=== PATIENT | female | born 1940 | race Caucasian/White ===

== ENCOUNTER → 2017-08-02 | Outpatient (CLI) | payer MEDICARE ==
[~2017-08-02] MED LIST: AMLO2.5T PO; APAP/BUTALBITAL1 TA1 PO; CYMBALTA30 MG PO; DIAZEPAM5 MG PO; FLONASE 50 MCG16 GM; GABAPENTIN300 MG PO; HYDROCHLOROTH12.5 M1 PO; LEVOTHYROXINE0.05 MG PO; MELOXICAM15 MG PO; MIRAPEX 0.120.125 MG PO; PERCOCET 5/3251 EACH PO; PREDNISONE 10MG10 MG PO; PRILOSEC20 M1 PO; PROAIR HFA0.09 MG/AC IH; PROLIA60 MG/ML SC; RESTORIL30 MG PO; SPIRIVA18 MCG IH; SYMBICORT1 AER IH; SYNTHROID 0.00.05 MG PO; VIMOVO 20 MG-501 TCP PO; VITAMIN B121000 MC2 PO; VITAMIN D1000 IU PO; XOPENEX0.63 MG/3 INH; ZYRTEC 10MG TAB10 MG PO
== END ==
LOC: LAB 11:57
DX: J40 Bronchitis, not specified as acute or chronic (principal)

== ENCOUNTER → 2017-08-07 | Outpatient (CLI) | payer MEDICARE, MEDICAID ==
--- NOTE | 2017-08-07 21:10 | RADIOLOGY REPORT PS360 ---
PROCEDURE: 2-D M-mode and color Doppler study INDICATIONS FOR THE TEST: Chest pain COPD Heart Murmur Tobacco Smoking Palpitations Fatigue Syncope Edema HypertensionXDiabetes Mellitus Rheumatic Fever SOBXDOEXObesityXHyperlipidemia Family History HD Additional History PATIENT INFORMATION HEIGHT: 62 WEIGHT:200 GENDER: Female B/P:140/80 2-D/M-MODE INTERPRETATION: 2-D MEASUREMENTS OBSERVED VALUES IN CMS Right Ventricular Dimension (RVDd) 2.3 Interventricular Septum (Thickness)(IVsd) 1.0 Left Ventricular Internal Dimensions(LVIDd) 6.0 Left Ventricular Posterior Wall (Thickness)(LVPWd) 1.0 Aortic Root 3.3 Aortic Cusp Separation 1.9 Left Atrial Dimensions (LAD) 2.8 2D 1. Left atrium is mildly enlarged, left ventricle is normal size, there is mild inferior wall hypokinesis, visually estimated ejection fraction 50%. 2. The right atrium and right ventricle are relatively normal size and function. 3. The aortic valve is minimally thickened and fibrosed. 4. The mitral and tricuspid valve leaflets are minimally thickened. 5. The pulmonic valve is poorly visualized. 6. No significant pericardial effusion noted. DOPPLER INTERROGATION: Doppler interrogation of the aortic, mitral and tricuspid valvular presence of mild mitral and tricuspid regurgitation, tricuspid and jet velocity is insufficient for calculation of the right ventricular systolic pressure, grade 1 diastolic dysfunction seen without tissue Doppler evidence of raised left atrial pressure, agitated saline contrast study identifies right to left shunt likely secondary to patent foramen ovale. CONCLUSION: 1. Mildly enlarged left atrium, normal left ventricular size, preserved left ventricular systolic function, visually estimated ejection fraction of 55% with no obvious regional wall motion abnormality, grade 1 diastolic dysfunction seen without tissue Doppler evidence of raised left atrial pressure. 2. Mild mitral and tricuspid regurgitation, tricuspid regurgitant jet velocity insufficient for calculation of the right ventricular systolic pressure. 3. Agitated saline contrast study identifies right to left shunt through patent foramen ovale.
== END ==
LOC: RT 08:50
DX: R06.02 Shortness of breath (principal)

== ENCOUNTER 2017-10-08 07:59 | Day surgery (SDC) | payer MEDICARE ==
[~2017-10-08] VITALS: Ht 157.5 cm; Wt 90.7 kg
--- NOTE | 2017-10-08 08:59 | Operative Note ---
Upper GI Endoscopy Procedure date: 10/08/17 Date of : 42 Procedure:Upper GI Endoscopy Esophagogastroduodenoscopy with cold biopsies and TTS balloon dilation Indications: Mrs. Devi is a 76-year-old female who is here for diagnostic upper endoscopy. She does have dyspepsia with epigastric abdominal soreness and pain. She has some bloating. She also reports some heartburn and reflux. She is on omeprazole 20 mg by mouth twice a day. She did have an upper endoscopy in [address] Derian Crane and did have some esophagitis at that time. The patient does report some occasional but rare dysphagia. She reports no nausea, belching or early satiety. She reports no melena, hematochezia or weight loss. Performing Provider: Felice Card MD Referring Provider: Kendall Taylor M.D. Sedation: MAC sedation Procedure: Prior to the procedure, a history and physical exam was performed, and patients medications and allergies were reviewed. The risks and benefits of the procedure and the sedation options and risks were discussed with the patient. All questions were answered and informed consent was obtained. The patient was brought to the procedure room. Patient identification and proposed procedure were verified by the physician and the nurse. The patient was placed in a left lateral decubitus position and the scope was passed under direct vision. Throughout the procedure, the patient's blood pressure, pulse, and oxygen saturations were monitored continuously. The endoscope was introduced through the mouth, and advanced to the second part of duodenum. The upper GI endoscopy was accomplished without difficulty. The patient tolerated the procedure well. Findings: The scope was passed directly into the upper esophagus and advanced to the third portion of the duodenum. Within the third portion of the duodenum was a 18-20 mm lesion that appeared to be submucosal in nature. This appeared to be slightly pedunculated. Cold biopsies were obtained. It was difficult to get well biopsies. The scope was withdrawn through a normal duodenal bulb and pylorus into the stomach. There was linear erythema of the antrum and body of the stomach with some bile reflux. The remainder of the antrum, body and fundus of the stomach were grossly normal. Upon retroflexion there was a very small 1-2 cm hiatal hernia. 2 biopsies were taken in the antrum and along the lesser curvature for histology. The scope was then withdrawn into the esophagus. There was a distal Schatzki's ring which was dilated to 60 Y[place]/20 mm with a TTS hydrostatic balloon. There was no evidence of reflux esophagitis or Dong's. The remainder of the esophageal mucosa was normal. Immediate complications: None EBL (ml): 0 Impression: 1. Schatzki's ring dilated to 20 mm 2. Nonerosive gastroesophageal reflux disease with very small sliding hiatal hernia and mild dysmotility 3. Linear reactive gastritis with bile reflux 4. 18-20 mm pedunculated duodenal lesionrule out submucosal lesion Recommendations: I will follow-up the biopsies. Will discuss additional treatment options for her functional dyspepsia. I will proceed with screening colonoscopy. I will follow up the biopsies of the duodenal pedunculated polypoid lesion. If the biopsies showed normal mucosa, I would consider endoscopic ultrasound of this lesion. at 0885
--- NOTE | 2017-10-08 09:31 | Operative Note ---
Colonoscopy ([place]) Procedure date: 10/08/17 Date of : 42 Procedure:Colonoscopy Colonoscopy with cold biopsies and cold snare polypectomy Indications: Mrs. Devi is a 76-year-old female who is here for follow-up screening colonoscopy. She does have dyspepsia. She also has a very strong family history of colon cancer. Her brother had colon cancer at the age of 58. Her father had colon cancer at the age of 80. She also thinks that her sister may have had colon cancer. The patient did have a colonoscopy in [address] Markie Aguero and had 2 polyps removed at that time that were diminutive. The patient does have normal bowel movements. She reports no rectal bleeding or weight loss. She does have upper abdominal discomfort. Performing Provider: Felice Card MD Referrring Provider: Kendall Taylor M.D. Sedation: MAC sedation Procedure: Prior to the procedure, a history and physical exam was performed, and patient medications and allergies were reviewed. The risks and benefits of the procedure and the sedation options and risks were discussed with the patient. All questions were answered and informed consent was obtained. Patient identification and proposed procedure were verified by the physician and the nurse. The patient was placed in a left lateral decubitus position. Throughout the procedure, the patient's blood pressure, pulse, and oxygen saturations were monitored continuously. Findings: On digital rectal examination there was normal rectal tone. There were no external hemorrhoids. The colonoscope was introduced through the anal canal to the rectum and advanced to the cecum. The ileocecal valve and appendiceal orifice were identified. The scope was advanced a short distance into the ileum which appeared grossly normal. The scope was then withdrawn into the colon. Cold biopsies were taken from the RIGHT colon to rule out microscopic colitis. There were 8 colon polyps identified in the cecum 2, ascending 3, transverse 1 and descending 2. These ranged in size from 4-8 mm and were all removed via cold snare polypectomy and cold biopsies. There were scattered diverticuli throughout the descending and sigmoid colon (LEFT colon). The rectum itself was normal. Upon retroflexion within the rectum there were grade 1 internal hemorrhoids. Impressions: 1. Colonic polyps 8 2. Left-sided diverticulosis 3. Grade 1 internal hemorrhoids Recommendations: I will follow up the polyp pathology and recommend repeat colonoscopy again in 3 years based upon the patient's family history and the present polyp number and histology. I would encourage fiber supplementation on a long-term daily maintenance basis. Complications: None EBL (ml): 0 at 0931
[2017-10-08 10:49] VITALS: BP 133/80
== END 2017-10-08 10:31 | disposition home or self-care (01) ==
LOC: SDC 07:59
PROVIDERS: Internal Medicine Gastroenterology
PROC: 0DBL8ZX Excision of Transverse Colon, Via Natural or Artificial Opening Endoscopic, Diagnostic (ICD-10-PCS; 2017-10-08)
PROC: 0DBM8ZX Excision of Descending Colon, Via Natural or Artificial Opening Endoscopic, Diagnostic (ICD-10-PCS; 2017-10-08)
PROC: 0DBH8ZX Excision of Cecum, Via Natural or Artificial Opening Endoscopic, Diagnostic (ICD-10-PCS; 2017-10-08)
PROC: 0D758ZZ Dilation of Esophagus, Via Natural or Artificial Opening Endoscopic (ICD-10-PCS; 2017-10-08)
PROC: 0DB98ZX Excision of Duodenum, Via Natural or Artificial Opening Endoscopic, Diagnostic (ICD-10-PCS; 2017-10-08)
PROC: 0DB68ZX Excision of Stomach, Via Natural or Artificial Opening Endoscopic, Diagnostic (ICD-10-PCS; 2017-10-08)
PROC: 0DBK8ZX Excision of Ascending Colon, Via Natural or Artificial Opening Endoscopic, Diagnostic (ICD-10-PCS; principal; 2017-10-08 09:30)
DX: Z12.11 Encounter for screening for malignant neoplasm of colon (principal); Z80.0 Family history of malignant neoplasm of digestive organs; Z86.010 Personal history of colon polyps; D12.4 Benign neoplasm of descending colon; D12.0 Benign neoplasm of cecum; D12.2 Benign neoplasm of ascending colon; K57.30 Diverticulosis of large intestine without perforation or abscess without bleeding; K64.0 First degree hemorrhoids; K22.2 Esophageal obstruction; K44.9 Diaphragmatic hernia without obstruction or gangrene; K21.9 Gastro-esophageal reflux disease without esophagitis; K22.4 Dyskinesia of esophagus; K29.60 Other gastritis without bleeding; D13.2 Benign neoplasm of duodenum
CPT/HCPCS: C1726

== ENCOUNTER 2017-10-10 11:40 | Outpatient (CLI) | payer MEDICARE ==
[2017-10-10 11:56] VITALS: BP 174/90
== END 2017-10-10 12:15 | disposition home or self-care (01) ==
LOC: COP 11:40
DX: M81.0 Age-related osteoporosis without current pathological fracture (principal)
CPT/HCPCS: J0897